=== PATIENT | female | born 1950 | race Caucasian/White ===

== ENCOUNTER 2017-02-25 08:34 | Observation (INO) | payer MEDICARE ==
[~2017-02-25] VITALS: Ht 154.9 cm; Wt 72.9 kg
[2017-02-25] VITALS (8 sets, daily range): BP systolic 128–166; BP diastolic 72–100; PULSE 62–70; RESP 16–20; TEMP 97.9–99.1; O2SAT 94–100
[~2017-02-25 08:34] MED LIST: CHOL1CAP2 PO; ESTR0.5T9 PO; FISH1000 PO; LEVO.05 PO; NEXI40CA PO; SIMV20 PO; TRAZ300T2 PO
[2017-02-25] MEDS: SODIUM CHLOR 0.9% 1000 ML INJ 1,000 ML IV SCH ×2 (08:43→13:59)
[2017-02-25] MEDS ORDERED: SODIUM CHLORIDE 0.9% FLUSH 5 ML FLUSH IV FLUSH PRN (08:45)
[2017-02-25] MEDS ORDERED: ALPR.5 PO (08:50)
[2017-02-25] MEDS ORDERED: LEVO75TA3 PO (08:50)
[2017-02-25] MEDS ORDERED: HYDR-3534 PO (08:50)
[2017-02-25] MEDS ORDERED: TRAZ300T2 PO (08:50)
[2017-02-25] MEDS ORDERED: SIMV20TA PO (08:50)
--- NOTE | 2017-02-25 09:02 | PD ---
HPI Chief Complaint: Altered Mental Status Time Seen by Provider: 08:43 Travel History International Travel<30 days: No Contact w/Intl Traveler<30days: No History of Present Illness HPI Patient presents via [facility] with complaints of altered mental status. reports a long history of medication abuse. 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 Currently reports patient regularly takes too much Xanax or Lortab and if these are unavailable resorts to alcohol. reports attempts of restricting access to these things which results in extreme anger outbursts by the patient. reports right shoulder arthroscopic surgery on Sunday. Patient was given an antibiotic and pain medication on Sunday which she filled and then tried to convince the pharmacy and physician that she reports did not have any pain medication and needed a new prescription. The Lortab that she didn't fill on Sunday was #60 currently there are 10 left. reports they found her this morning more obtunded than she normally is and had concerns. Narcan provided by [facility]. denies any strokelike symptoms, nausea, vomiting, diarrhea, urinary symptoms or fever. PFSH Past Medical History Blood Disorders: Yes (DIFFERENT SHAPED RBC'S PER DR. 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 LEG) Cardiovascular Problems: Yes High Cholesterol: Yes Diminished Hearing: Yes Gastrointestinal Disorders: Yes (CROHN'S) GERD: Yes Genitourinary: No Musculoskeletal: No Neurologic: No Psychiatric: Yes Respiratory: Yes Thyroid Disease: Yes Menopausal: Yes Past Surgical History Body Medical Devices: [employer]CH[employer]ER IMPLANTS Ear Surgery: Yes (COCHLER IMPLANTS) Gynecologic Surgery: Yes (HYSTERECTOMY) Hysterectomy: Yes Pacemaker: Yes Other Surgery: Yes Social History Alcohol Use: Yes Tobacco Use: Yes (1/2 PPD) Substance Use: No Allergies-Medications (Allergen,Severity, Reaction): Coded Allergies: Tylenol #3 (Verified Allergy, Intermediate, Itching, 02/25/17) Reported Meds & Prescriptions Reported Meds & Active Scripts Active Reported Trazodone (Trazodone HCl) 300 Mg Tab 300 Mg PO HS Simvastatin 20 Mg Tab 20 Mg PO DAILY Levothyroxine (Levothyroxine Sodium) 75 Mcg Tab 75 Mcg PO DAILY Review of Systems ROS Limitations: Altered Mental Status Physical Exam Narrative GENERAL: Well-nourished SKIN: Focused skin assessment warm/dry. HEAD: Atraumatic. Normocephalic. EYES: Pupils equal and round. No scleral icterus. No injection or drainage. ENT: No nasal bleeding or discharge. Mucous membranes pink and moist. NECK: Trachea midline. No JVD. CARDIOVASCULAR: Regular rate and rhythm. No murmur appreciated. Pacer surgical scar noted left upper chest Right shoulder mildly edematous no erythema or cellulitic changes RESPIRATORY: No accessory muscle use. Clear to auscultation. Breath sounds equal bilaterally. GASTROINTESTINAL: Abdomen soft, non-tender, nondistended. Hepatic and splenic margins not palpable. MUSCULOSKELETAL: No obvious deformities. No clubbing. No cyanosis. No edema. NEUROLOGICAL: Awake follows simple commands. No obvious cranial nerve deficits. Motor grossly within normal limits. Nonverbal. Negative Babinski Data Data Last Documented VS Orders Electrocardiogram (02/25/17 08:43) Ammonia (02/25/17 08:43) Complete Blood Count With Diff (02/25/17 08:43) Comprehensive Metabolic Panel (02/25/17 08:43) Urinalysis - C+S If Indicated (02/25/17 08:43) Lactic Acid Sepsis Protocol (02/25/17 08:43) Chest, Single Ap (02/25/17 08:43) Ct Brain W/O Iv Contrast(Rout) (02/25/17 08:43) Blood Glucose (02/25/17 08:43) Ecg Monitoring (02/25/17 08:43) Iv Access Insert/Monitor (02/25/17 08:43) Oximetry (02/25/17 08:43) Urinary Catheter Insert/Apply (02/25/17 08:43) Sodium Chloride 0.9% Flush (Ns Flush) (02/25/17 08:45) Sodium Chlor 0.9% 1000 Ml Inj (Ns 1000 M (02/25/17 08:43) Admit Order (Ed Use Only) (02/25/17 ) Vital Signs (Adult) Q4H (02/25/17 11:33) Diet Heart Healthy (02/25/17 Lunch) ^ Saline Lock (02/25/17 11:33) Resp Oxygen Sky C Titrat 1-4 L (02/25/17 ) Notify Dr: Other (02/25/17 11:33) Ondansetron Inj (Zofran Inj) (02/25/17 11:45) Sodium Chloride 0.9% Flush (Ns Flush) (02/25/17 21:00) Sodium Chloride 0.9% Flush (Ns Flush) (02/25/17 11:45) Case Management Consult (02/25/17 11:33) Labs MDM Medical Decision Making Medical Screen Exam Complete: Yes Emergency Medical Condition: Yes Differential Diagnosis CVA, sepsis, medication abuse Narrative Course Assessment and plan discussed with at bedside. EKG reveals normal sinus rhythm rate of 73. Last [address] 02/25/17842 Signed Impressions: Service Date/Time: Saturday, February 25, 2017 09:19 - CONCLUSION: Stable encephalomalacia left frontal lobe. Jorge Nichols MD Chest X-Ray 02/25/17842 Signed Impressions: Service Date/Time: Saturday, February 25, 2017 08:54 - CONCLUSION: No acute disease. Jorge Nichols MD Throughout patient's ER evaluation she is continued to clear slowly. Alert to name address [facility]. Confused to day and date. Lives at home alone with her who has difficulty caring for her Physician Communication Physician Communication Spoke to Dr Bae who is in agreement will admit for observation and social planning Diagnosis Primary Impression: Change in mental status Qualified Code: R41.0 - Disorientation Additional Impression: Noncompliance with medication treatment due to abuse of medication Admitting Information Admitting Physician Requests: Observation Damien Barry MD February 25, 2017 09:02 Differential Comment Sodium Level 143 MEQ/L Potassium Level 3.8 MEQ/L Chloride Level 108 MEQ/L Carbon Dioxide Level 24.4 MEQ/L Anion Gap 8 MEQ/L Blood Urea Nitrogen 19 MG/DL Creatinine 0.70 MG/DL Estimat Glomerular Filtration 84 ML/MIN Rate Random Glucose 95 MG/DL Lactic Acid Level 1.1 mmol/L Calcium Level 8.6 MG/DL Total Bilirubin 0.4 MG/DL Aspartate Amino Transf 33 U/L (AST/SGOT) Alanine Aminotransferase 40 U/L (ALT/SGPT) Alkaline Phosphatase 95 U/L Ammonia 28 MCMOL/L Total Protein 6.6 GM/DL Albumin 3.5 GM/DL Urine Collection Type CATH Urine Color STRAW Urine Turbidity CLEAR Urine pH 5.5 Urine Specific [place] 1.010 Urine Protein NEG mg/dL Urine Glucose (UA) NEG mg/dL Urine Ketones NEG mg/dL Urine Occult Blood NEG Urine Nitrite NEG Urine Bilirubin NEG Urine Leukocyte Esterase NEG Urine Transitional Epithelial 0-5 /hpf Cells Urine Amorphous Sediment FEW Microscopic Urinalysis Comment CATH-CULT NOT IND Urine Collection Time [facility] Medical Decision Making Medical Screen Exam Complete: Yes Emergency Medical Condition: Yes Differential Diagnosis CVA, sepsis, medication abuse Narrative Course Assessment and plan discussed with at bedside. EKG reveals normal sinus rhythm rate of 73. Last [address] 02/25/17842 Signed Impressions: Service Date/Time: Saturday, February 25, 2017 09:19 - CONCLUSION: Stable encephalomalacia left frontal lobe. Jorge Nichols MD Chest X-Ray 02/25/17842 Signed Impressions: Service Date/Time: Saturday, February 25, 2017 08:54 - CONCLUSION: No acute disease. Jorge Nichols MD Throughout patient's ER evaluation she is continued to clear slowly. Alert to name address [facility]. Confused to day and date. Lives at home alone with her who has difficulty caring for her Diagnosis Primary Impression: Change in mental status Qualified Code: R41.0 - Disorientation Additional Impression: Noncompliance with medication treatment due to abuse of medication Damien Barry MD February 25, 2017 09:02
--- NOTE | 2017-02-25 09:05 | RADHPO ---
EXAM DATE/TIME: 02/25/2017 08:54 [facility] COMPARISON: No previous studies available for comparison. INDICATIONS : General weakness, syncope MEDICAL HISTORY : None. SURGICAL HISTORY : Pacemaker. ENCOUNTER: Initial ACUITY: 1 day PAIN SCORE: Non-responsive. LOCATION: Bilateral chest FINDINGS: Cardiomegaly and aortic calcification noted. Pacer device from a left subclavian transvenous approach noted. The lungs are clear. Osseous structures are intact. CONCLUSION: No acute disease. Jorge Nichols MD on February 25, 2017 at 9:03 Board Certified Radiologist. This report was verified electronically.
[2017-02-25 09:21] LABS: AUTOMATED NEUTROPHIL # 6.4 TH/MM3 (1.8-7.7); BASOPHIL # 0.2 TH/MM3 (0-0.2); BASOPHIL % 1.9 % (0.0-2.0); EOSINOPHIL # 0.2 TH/MM3 (0-0.4); EOSINOPHIL % 2.2 % (0.0-4.0); HEMATOCRIT 34.1 % (35.0-46.0); HEMO FLAGS DIFF FINAL; LYMPH % 18.2 % (9.0-44.0); LYMPHOCYTE # 1.7 TH/MM3 (1.0-4.8); MEAN CELL VOLUME 95.9 FL (80.0-100.0); MEAN CORPUSCULAR HEMOGLOBIN 33.3 PG (27.0-34.0); MEAN CORPUSCULAR HGB CONC 34.7 % (32.0-36.0); MONO % 6.1 % (0.0-8.0); NEUT % 71.6 % (16.0-70.0); PLATELET COUNT 152 TH/MM3 (150-450); RED BLOOD COUNT 3.55 MIL/MM3 (4.00-5.30); RED CELL DISTRIBUTION WIDTH 13.2 % (11.6-17.2); WHITE BLOOD COUNT 9.1 TH/MM3 (4.0-11.0)
[2017-02-25 09:34] LABS: BLOOD, URINE NEG (NEG); GLUCOSE,URINE NEG (NEG); KETONE, URINE NEG (NEG); NITRITE,URINE NEG (NEG); PH, URINE 5.5 (5.0-8.5)
[2017-02-25 09:50] LABS: METHOD OF COLLECTION CATH; URINE COLOR STRAW (YELLW/STRAW)
[2017-02-25 09:51] LABS: COMMENT (UR) CATH-CULT NOT IND; CULTURE IF INDICATED CATH CULTURE NOT IND; TRANSITIONAL EPI CELLS, URINE 0-5 /hpf
[2017-02-25 09:53] LABS: BLOOD UREA NITROGEN 19 MG/DL (7-18); CHLORIDE 108 MEQ/L (98-107); GLOMERULAR FILTRATION RATE 84 ML/MIN (>89); POTASSIUM 3.8 MEQ/L (3.5-5.1); SODIUM (NA) 143 MEQ/L (136-145)
[2017-02-25 10:03] LABS: ANION GAP 8 MEQ/L (5-15); BICARBONATE 24.4 MEQ/L (21.0-32.0)
--- NOTE | 2017-02-25 10:04 | RADHPO ---
EXAM DATE/TIME: 02/25/2017 09:19 [facility] COMPARISON: CT BRAIN W/O CONTRAST, November 11, 2012, 19:08. INDICATIONS : Generalized weakness. RADIATION DOSE: 63.59 CTDIvol (mGy) MEDICAL HISTORY : Cardiovascular disease. Crohns disease. Gastroesophageal reflux disease.Melanoma left leg. SURGICAL HISTORY : Hysterectomy. Pacemaker.Bilateral cochlear implants. ENCOUNTER: Initial ACUITY: 1 day PAIN SCALE: 0/10 LOCATION: cranial TECHNIQUE: Multiple contiguous axial images were obtained of the head. Using automated exposure control and adj ustment of the mA and/or kV according to patient size, radiation dose was kept as low as reasonably a chievable to obtain optimal diagnostic quality images. FINDINGS: Bilateral cochlear implants are identified. Postsurgical changes to the bilateral mastoid bones prese nt. No fractures are seen. There is no hemorrhage identified. There is hypodensity in the left fronta l lobe representing encephalomalacia. No signs of acute infarct, intracranial hemorrhage, or mass. CONCLUSION: Stable encephalomalacia left frontal lobe. Jorge Nichols MD on February 25, 2017 at 10:01 Board Certified Radiologist. This report was verified electronically.
[2017-02-25 10:06] LABS: ALT (GPT) 40 U/L (10-53); AST (GOT) 33 U/L (15-37)
[2017-02-25 10:08] LABS: TOTAL BILIRUBIN ADULT 0.4 MG/DL (0.2-1.0)
[2017-02-25 10:09] LABS: ALKALINE PHOSPHATASE 95 U/L (45-117)
[2017-02-25] MEDS ORDERED: ONDANSETRON HCL 4 MG/2 ML VIAL IVP PRN (11:30)
[2017-02-25] MEDS ORDERED: cloNIDine HCL 0.1 MG TAB PO PRN (11:30)
[2017-02-25] MEDS ORDERED: NALOXONE HCL 0.4 MG/ML AMP IV PRN (11:30)
[2017-02-25] MEDS ORDERED: ACETAMINOPHEN 325 MG TAB PO PRN (11:30)
[2017-02-25] MEDS ORDERED: SODIUM CHLORIDE 0.9% FLUSH 10 ML FLUSH IVF PRN (11:45)
[2017-02-25] MEDS ORDERED: ALPRAZolam 0.5 MG TAB PO PRN (11:45)
[2017-02-25] MEDS ORDERED: ONDANSETRON HCL 4 MG/2 ML VIAL IV PRN (11:45)
[2017-02-25] MEDS ORDERED: ENOXAPARIN SODIUM 40 MG/0.4 ML SYRINGE SQ SCH (12:00)
--- NOTE | 2017-02-25 12:21 | HHI.HP ---
[facility] Service [facility] Primary Care Physician Zachary Rowland MD Admission Diagnosis altered mental status, medication overdose/abuse Diagnoses: (1) Narcotic overdose (2) Toxic encephalopathy (3) Alcoholism /alcohol abuse (4) Narcotic abuse (5) Benzodiazepine overdose (6) Benzodiazepine abuse Travel History International Travel<30 Days: No Contact w/Intl Traveler <30 Da: No Traveled to Known Affected Are: No History of Present Illness Mrs. Sandy is a 66 year old female. She is brought in today secondary to frequent falls at home and altered mental status and lethargy and confusion. 4 days ago she had a right shoulder arthroscopy procedure for bone spur removal. She was given narcotics as a treatment, but she has overused these and in addition increase the frequency of her baseline benzodiazepine use and trazodone. She has a history of alcohol abuse and history of narcotic abuse and dependence. Presently she is unable to provide any history, her is present at bedside to provide history. Chronic medical conditions are COPD and she has an indwelling pacemaker. She has depression. She has insomnia. In the past she has suffered a head injury in 2010 with intracranial hemorrhage and his complications from this she developed acute respiratory distress syndrome. Positional fractures have been her skull and face and right wrist. No surgeries were provided for those injuries. She has had a bilateral cochlear implants, hysterectomy and the recent right shoulder arthroscopy. She currently smokes about 1 pack per day. Hypertriglyceridemia is present at baseline. Of concern is of Tylenol in her narcotic ([place]). Preliminary testing shows no evidence of LFT elevation. Review of Systems ROS Limitations: Intoxication, Uncooperative Musculoskeletal: COMPLAINS OF: Joint pain Past Family Social History Past Medical History Hypertriglyceridemia Narcotic abuse Alcohol abuse Depression Nicotine dependence History of head injury History of intracranial hemorrhage History of acute respiratory distress syndrome History of skull fracture History of face fracture History of right wrist fracture Past Surgical History Hysterectomy Bilateral cochlear implants Right shoulder arthroscopy Reported Medications Reported Meds & Active Scripts Active Reported Xanax (Alprazolam) 0.5 Mg Tab 0.5 Mg PO Q8H PRN Trazodone (Trazodone HCl) 300 Mg Tab 300 Mg PO HS Simvastatin 20 Mg Tab 20 Mg PO DAILY Levothyroxine (Levothyroxine Sodium) 75 Mcg Tab 75 Mcg PO DAILY Allergies: Coded Allergies: Tylenol #3 (Verified Allergy, Intermediate, Itching, 02/25/17) Family History Unable to obtain secondary to toxic encephalopathy Social History Alcohol abuse Nicotine dependence Narcotic abuse Lives with Physical Exam Vital Signs Vital Signs Date Time Temp Pulse Resp B/P Pulse Ox O2 Delivery O2 Flow Rate FiO2 02/25/17 11:08 18 99 Room Air 02/25/17 10:28 67 18 166/79 98 Room Air 02/25/17 08:40 99.1 70 18 149/85 100 02/25/17 08:40 100 Room Air Physical Exam GENERAL: NAD, A&Ox1 SKIN: Warm and dry. HEAD: Normocephalic. EYES: No scleral icterus. No injection or drainage. NECK: Supple, trachea midline. No JVD or lymphadenopathy. CARDIOVASCULAR: Regular rate and rhythm without murmurs, gallops, or rubs. RESPIRATORY: Breath sounds equal bilaterally. No accessory muscle use. GASTROINTESTINAL: Abdomen soft, non-tender, nondistended. MUSCULOSKELETAL: No cyanosis, or edema. Laboratory Laboratory Tests Test 02/25/17 02/25/17 09:10 09:20 White Blood Count 9.1 Red Blood Count 3.55 Hemoglobin 11.8 Hematocrit 34.1 Mean Corpuscular Volume 95.9 Mean Corpuscular Hemoglobin 33.3 Mean Corpuscular Hemoglobin 34.7 Concent Red Cell Distribution Width 13.2 Platelet Count 152 Mean Platelet Volume 7.0 Neutrophils (%) (Auto) 71.6 Lymphocytes (%) (Auto) 18.2 Monocytes (%) (Auto) 6.1 Eosinophils (%) (Auto) 2.2 Basophils (%) (Auto) 1.9 Neutrophils # (Auto) 6.4 Lymphocytes # (Auto) 1.7 Monocytes # (Auto) 0.6 Eosinophils # (Auto) 0.2 Basophils # (Auto) 0.2 CBC Comment DIFF FINAL Differential Comment Sodium Level 143 Potassium Level 3.8 Chloride Level 108 Carbon Dioxide Level 24.4 Anion Gap 8 Blood Urea Nitrogen 19 Creatinine 0.70 Estimat Glomerular Filtration 84 Rate Random Glucose 95 Lactic Acid Level 1.1 Calcium Level 8.6 Total Bilirubin 0.4 Aspartate Amino Transf 33 (AST/SGOT) Alanine Aminotransferase 40 (ALT/SGPT) Alkaline Phosphatase 95 Ammonia 28 Total Protein 6.6 Albumin 3.5 Urine Collection Type CATH Urine Color STRAW Urine Turbidity CLEAR Urine pH 5.5 Urine Specific [place] 1.010 Urine Protein NEG Urine Glucose (UA) NEG Urine Ketones NEG Urine Occult Blood NEG Urine Nitrite NEG Urine Bilirubin NEG Urine Leukocyte Esterase NEG Urine Transitional Epithelial 0-5 Cells Urine Amorphous Sediment FEW Microscopic Urinalysis Comment CATH-CULT NOT IND Urine Collection Time 919 Result Diagram: 02/25/1710 02/25/17909 Imaging Last Impressions Head CT 02/25/17842 Signed Impressions: Service Date/Time: Saturday, February 25, 2017 09:19 - CONCLUSION: Stable encephalomalacia left frontal lobe. Jorge Nichols MD Chest X-Ray 02/25/17842 Signed Impressions: Service Date/Time: Saturday, February 25, 2017 08:54 - CONCLUSION: No acute disease. Jorge Nichols MD Assessment and Plan Problem List: (1) Narcotic overdose ICD Code: T40.601A Status: Acute (2) Toxic encephalopathy ICD Code: G92 Status: Acute (3) Alcoholism /alcohol abuse ICD Code: F10.20 Status: Acute (4) Narcotic abuse ICD Code: F11.10 Status: Acute (5) Benzodiazepine overdose ICD Code: T42.4X1A Status: Acute (6) Benzodiazepine abuse ICD Code: F13.10 Status: Acute Assessment and Plan Narcotic overdose Benzodiazepine overdose Toxic encephalopathy Supportive care Monitor liver function tests Avoid narcotics When necessary benzodiazepine Sitter to bedside Bedrest for now when patient is more coherent will start PT History of alcoholism Folic acid Thiamine Monitor for DTs X Hypertriglyceridemia Zocor COPD Monitor clinically No exacerbation As needed albuterol Bilateral cochlear implants Hearing is impaired Supportive care next Nicotine dependence NicoDerm started Depression Continue trazodone daily at bedtime History of intracranial hemorrhage History of acute respiratory distress syndrome History of skull fracture History of face fracture History of right wrist fracture These are secondary to alcohol and narcotic abuse Avoid Lovenox DVT prophylaxis SCDs William Bae MD February 25, 2017 12:21
[2017-02-25] MEDS ORDERED: THIAMINE HCL 100 MG TAB PO ONE (12:30)
[2017-02-25] MEDS ORDERED: FOLIC ACID 1 MG TAB PO ONE (12:30)
[2017-02-25] MEDS ORDERED: NICOTINE 21 MG/24 HR PATCH T-DERMAL ONE (13:00)
[2017-02-25] MEDS: RESP: ALBUTEROL 2.5 MG/3 ML NEB (SCH) NEB ×2 (15:20→21:20)
[2017-02-25] MEDS: IBUPROFEN 400 MG TAB PO PRN (17:40)
[2017-02-25] MEDS: SODIUM CHLORIDE 0.9% FLUSH 10 ML FLUSH IV FLUSH SCH (20:58)
[2017-02-25] MEDS ORDERED: SODIUM CHLORIDE 0.9% FLUSH 10 ML FLUSH IV FLUSH SCH (21:00)
[2017-02-25] MEDS ORDERED: traZODone HCL 100 MG TAB PO SCH (21:00)
[2017-02-26 00:38] VITALS: BP 115/76; PULSE 88; RESP 18; TEMP 97.5; O2SAT 95
[2017-02-26] MEDS: RESP: ALBUTEROL 2.5 MG/3 ML NEB (SCH) NEB ×2 (04:29→09:50)
[2017-02-26] MEDS: IBUPROFEN 400 MG TAB PO PRN (04:57)
[2017-02-26] MEDS ORDERED: LEVOTHYROXINE SODIUM 75 MCG TAB PO SCH (06:00)
[2017-02-26 08:00] VITALS: BP 121/70; PULSE 79; RESP 18; TEMP 97.2; O2SAT 97
[2017-02-26 08:03] LABS: AUTOMATED NEUTROPHIL # 5.1 TH/MM3 (1.8-7.7); BASOPHIL % 0.2 % (0.0-2.0); EOSINOPHIL # 0.1 TH/MM3 (0-0.4); EOSINOPHIL % 1.8 % (0.0-4.0); HEMATOCRIT 35.4 % (35.0-46.0); HEMO FLAGS DIFF FINAL; LYMPH % 20.3 % (9.0-44.0); LYMPHOCYTE # 1.4 TH/MM3 (1.0-4.8); MEAN CELL VOLUME 96.4 FL (80.0-100.0); MEAN CORPUSCULAR HEMOGLOBIN 32.8 PG (27.0-34.0); MEAN CORPUSCULAR HGB CONC 34.1 % (32.0-36.0); MONO % 7.2 % (0.0-8.0); NEUT % 70.5 % (16.0-70.0); PLATELET COUNT 158 TH/MM3 (150-450); RED BLOOD COUNT 3.68 MIL/MM3 (4.00-5.30); RED CELL DISTRIBUTION WIDTH 13.3 % (11.6-17.2); WHITE BLOOD COUNT 7.1 TH/MM3 (4.0-11.0)
[2017-02-26 08:09] LABS: CHLORIDE 110 MEQ/L (98-107); POTASSIUM 3.9 MEQ/L (3.5-5.1); SODIUM (NA) 145 MEQ/L (136-145)
[2017-02-26 08:22] LABS: ANION GAP 9 MEQ/L (5-15); BLOOD UREA NITROGEN 10 MG/DL (7-18)
[2017-02-26 08:25] LABS: ALT (GPT) 33 U/L (10-53); AST (GOT) 20 U/L (15-37)
[2017-02-26 08:27] LABS: GLOMERULAR FILTRATION RATE 75 ML/MIN (>89); TOTAL BILIRUBIN ADULT 0.5 MG/DL (0.2-1.0)
[2017-02-26 08:28] LABS: ALKALINE PHOSPHATASE 93 U/L (45-117)
[2017-02-26] MEDS: SODIUM CHLORIDE 0.9% FLUSH 10 ML FLUSH IV FLUSH SCH (09:00)
[2017-02-26] MEDS ORDERED: THIAMINE HCL 100 MG TAB PO SCH (09:00)
[2017-02-26] MEDS ORDERED: PRAVASTATIN SOD 40 MG TAB PO SCH (09:00)
[2017-02-26] MEDS ORDERED: FOLIC ACID 1 MG TAB PO SCH (09:00)
[2017-02-26 09:53] VITALS: O2SAT 95
--- NOTE | 2017-02-26 10:30 | HHI.FF ---
Face to Face Verification Diagnosis: (1) Falls frequently Physical Therapy Order: Evaluate and Treat Instructions: 1 week of home assessment and therapy if needed, frequent falls. I have seen patient Tej Sandy on 02/26/17. My clinical findings support the need for the requested home health care services because: Deconditioned w/ increased weakness Med compliance is questionable Need for psychosocial assistance Impaired cognition/judgement I certify that my clinical findings support that this patient is homebound because: Impaired cognitive ability/safety Need for psychosocial assistance Unable to use public transportation William Bae MD February 26, 2017 10:30 am
--- NOTE | 2017-02-26 13:10 | EKG ---
Date Performed: 02/25/2017 Time Performed: 08:52:44 PTAGE: 66 years EKG: Sinus rhythm Poor R wave progression - probable normal variant Low QRS voltages in precordial leads Borderline EC G Compared to prior tracing no significant change PREVIOUS TRACING : 11/11/2012 18.29 DOCTOR: Kit Irving Interpretating Date/Time 02/26/2017 13:09:23
--- NOTE | 2017-02-26 14:02 | HHI.DS ---
Discharge Summary Admission Date February 25, 2017 at 11:36 am Discharge Date: February 26, 2017 Admitting Diagnosis altered mental status, medication overdose/abuse (1) Narcotic overdose ICD Code: T40.601A Diagnosis: Principal (2) Toxic encephalopathy ICD Code: G92 Diagnosis: Principal (3) Alcoholism /alcohol abuse ICD Code: F10.20 Diagnosis: Secondary (4) Narcotic abuse ICD Code: F11.10 Diagnosis: Secondary (5) Benzodiazepine overdose ICD Code: T42.4X1A Diagnosis: Principal (6) Benzodiazepine abuse ICD Code: F13.10 Diagnosis: Secondary Procedures None Brief History - From Admission Mrs. Sandy is a 66 year old female. She is brought in today secondary to frequent falls at home and altered mental status and lethargy and confusion. 4 days ago she had a right shoulder arthroscopy procedure for bone spur removal. She was given narcotics as a treatment, but she has overused these and in addition increase the frequency of her baseline benzodiazepine use and trazodone. She has a history of alcohol abuse and history of narcotic abuse and dependence. Presently she is unable to provide any history, her is present at bedside to provide history. Chronic medical conditions are COPD and she has an indwelling pacemaker. She has depression. She has insomnia. In the past she has suffered a head injury in 2010 with intracranial hemorrhage and his complications from this she developed acute respiratory distress syndrome. Positional fractures have been her skull and face and right wrist. No surgeries were provided for those injuries. She has had a bilateral cochlear implants, hysterectomy and the recent right shoulder arthroscopy. She currently smokes about 1 pack per day. Hypertriglyceridemia is present at baseline. Of concern is of Tylenol in her narcotic ([place]). Preliminary testing shows no evidence of LFT elevation. CBC/BMP: 02/26/17 0700 02/26/17 0700 Significant Findings Laboratory Tests Test 02/25/17 02/26/17 09:10 07:00 Red Blood Count 3.55 MIL/MM3 3.68 MIL/MM3 (4.00-5.30) (4.00-5.30) Hematocrit 34.1 % (35.0-46.0) Neutrophils (%) (Auto) 71.6 % 70.5 % (16.0-70.0) (16.0-70.0) Chloride Level 108 MEQ/L 110 MEQ/L (98-107) (98-107) Blood Urea Nitrogen 19 MG/DL (7-18) Estimat Glomerular Filtration 84 ML/MIN (>89) 75 ML/MIN (>89) Rate Random Glucose 110 MG/DL (74-106) Total Protein 6.3 GM/DL (6.4-8.2) Albumin 3.3 GM/DL (3.4-5.0) Imaging Last Impressions Head CT 02/25/17842 Signed Impressions: Service Date/Time: Saturday, February 25, 2017 09:19 - CONCLUSION: Stable encephalomalacia left frontal lobe. Jorge Nichols MD Chest X-Ray 02/25/17842 Signed Impressions: Service Date/Time: Saturday, February 25, 2017 08:54 - CONCLUSION: No acute disease. Jorge Nichols MD Hospital Course Mrs. Sandy is a 66 year old female. She was admitted yesterday with altered level of consciousness. Etiology was a toxic encephalopathy secondary to benzodiazepine and narcotic overdose. She had been prescribed narcotics for a right shoulder arthroscopy. Apparently she took a large amount of her prescriptions together. No signs of liver damage are present both on yesterday' s examination and today's. LFTs are remained within normal limits. This morning her mentation has returned to baseline. She is graded with physical therapy and is able to ambulate. Medically she is stable for discharge to home today. She is recommended to avoid alcohol, narcotics, benzodiazepines. Given frequent falls at home and home PT as ordered. Medically stable for discharge. Pt Condition on Discharge: Stable Discharge Disposition: Disch w/ Home Health Serv Discharge Time: <= 30 minutes Discharge Instructions DIET: Follow Instructions for: As Tolerated, No Restrictions Additional Diet Instructions: Avoid alcohol use Activities you can perform: Regular-No Restrictions Follow up Referrals: PCP Follow-up - 2 Weeks Continued Medications: Levothyroxine (Levothyroxine) 75 Mcg Tab 75 MCG PO DAILY Thyroid #30 Ref 0 TAB Simvastatin (Simvastatin) 20 Mg Tab 20 MG PO DAILY Cholesterol Management #30 Ref 0 TAB Trazodone (Trazodone) 300 Mg Tab 300 MG PO HS Control Depression #30 Ref 0 TAB Discontinued Medications: Alprazolam (Xanax) 0.5 Mg Tab 0.5 MG PO Q8H PRN ANXIETY Ref 0 TAB William Bae MD February 26, 2017 2:02 pm
== END 2017-02-26 11:20 | disposition home or self-care (01) ==
LOC: PHED 08:34 → UNDOADMOB 11:36 → PHEDA 11:36 → PH3B 13:20 → UNDODISOB 02-26 11:20
PROVIDERS: ADMIT Hospitalist; ATTEND Hospitalist
DX: T40.601A Poisoning by unspecified narcotics, accidental (unintentional), initial encounter (principal); G92 Toxic encephalopathy; T42.4X1A Poisoning by benzodiazepines, accidental (unintentional), initial encounter; F17.200 Nicotine dependence, unspecified, uncomplicated; F10.20 Alcohol dependence, uncomplicated; F11.10 Opioid abuse, uncomplicated; F41.9 Anxiety disorder, unspecified; R29.6 Repeated falls; G47.00 Insomnia, unspecified; E78.1 Pure hyperglyceridemia; J44.9 Chronic obstructive pulmonary disease, unspecified; F32.9 Major depressive disorder, single episode, unspecified; Z87.81 Personal history of (healed) traumatic fracture; Z85.820 Personal history of malignant melanoma of skin; Z95.0 Presence of cardiac pacemaker; Z88.8 Allergy status to other drugs, medicaments and biological substances
CPT/HCPCS: 51702; 70450; 71010; 80053; 81001; 82140; 83605; 85025; 93005; 94640; 94664; 97162; 99285; G0378; G8987; G8988; J1650; J7030; J7613